=== PATIENT | male | born 1975 ===

== ENCOUNTER 2017-10-10 18:45 | Emergency (ER) | payer SELFPAY ==
[2017-10-10 18:57] VITALS: RESP 18
[2017-10-10] MEDS ORDERED: Amoxicillin-Clav 875-125 mg Tab PO STA (19:18)
[2017-10-10] MEDS ORDERED: Oxycodone/Acetaminophen 5/325 mg Tab PO STA (19:18)
--- NOTE | 2017-10-10 19:22 | ED PDOC ---
Arrival/HPI - General Chief Complaint: Dental Pain Time Seen by Provider: 10/10/17 19:18 Historian: Patient - History of Present Illness Narrative History of Present Illness (Text): 10/10/17 19:19 42 y/o male, pmh including dm, nkda, c/o rt. upper molar and facial pain x 3 days with no fall or trauma. Aching pain, aggravated by biting, associated with facial pain, no change in vision, no painful movement of the eye, no facial or eyelid swelling, no fever or chills, no chin swelling, no difficulty swallowing, no other medical or psychological complaints. Past Medical History - Provider Review Nursing Documentation Reviewed: Yes - Infectious Disease Hx of Infectious Diseases: None - Cardiac Hx Cardiac Disorders: No - Pulmonary Hx Asthma: No - Endocrine/Metabolic Hx Diabetes Mellitus Type 2: Yes - Psychiatric Hx Substance Use: No - Anesthesia Hx Anesthesia: No Family/Social History - Physician Review Nursing Documentation Reviewed: Yes Family/Social History: Unknown Family HX Smoking Status: Current Some Days Smoker Hx Alcohol Use: Yes Frequency of alcohol use: Socially Hx Substance Use: No Substance used: WEED Allergies/Home Meds Allergies/Adverse Reactions: Allergies No Known Allergies Allergy (Verified 10/10/17 18:57) Review of Systems - Review of Systems Constitutional: absent: Fatigue, Fevers Eyes: absent: Vision Changes ENT: Other (+dental pain). absent: Hearing Changes Respiratory: absent: SOB, Cough Cardiovascular: absent: Chest Pain Gastrointestinal: absent: Abdominal Pain, Nausea, Vomiting Musculoskeletal: absent: Arthralgias, Back Pain Skin: absent: Rash, Pruritis, Skin Lesions Neurological: absent: Headache Psychiatric: absent: Anxiety, Depression, Suicidal Ideation Physical Exam Vital Signs Reviewed: Yes Vital Signs Temp Pulse Resp BP Pulse Ox 10/10/17 19:41 99.0 F 10/10/17 18:51 99.4 F 98 H 18 147/82 97 Temperature: Afebrile Blood Pressure: Normal Pulse: Regular Respiratory Rate: Normal Appearance: Positive for: Well-Appearing, Non-Toxic, Comfortable Pain Distress: Severe Mental Status: Positive for: Alert and Oriented X 3 Finger Stick Blood Glucose: 270 - Systems Exam Head: Present: Atraumatic, Normocephalic Pupils: Present: PERRL, Non-Reactive Extroacular Muscles: Present: EOMI, Other (no painful movement of the eyes). No : Entrapment Conjunctiva: Present: Normal Ears: Present: NORMAL TM, Normal Canal. No: Erythema Mouth: Present: Moist Mucous Membranes, Other (Rt. upper molar noted to have dental caries and cracked molar noted, no gingival abscess or gingivitis, no facial swelling, no periorbital swelling. ) Nose (Internal): Present: Normal Inspection, No Active Bleeding. No: Rhinorrhea , Epistaxis Neck: Present: Normal Range of Motion, Trachea Midline. No: MIDLINE TENDERNESS , Lymphadenopathy Respiratory/Chest: Present: Clear to Auscultation, Good Air Exchange. No: Respiratory Distress, Accessory Muscle Use, Wheezes, Decreased Breath Sounds, Rales, Retracting, Rhonchi Cardiovascular: Present: Regular Rate and Rhythm, Normal S1, S2. No: Murmurs Abdomen: No: Tenderness, Distention, Peritoneal Signs Back: Present: Normal Inspection Upper Extremity: Present: Normal Inspection. No: Cyanosis, Edema Lower Extremity: Present: Normal Inspection. No: Edema Neurological: Present: GCS=15, CN II-XII Intact, Speech Normal, Motor Func Grossly Intact, Gait Normal, Memory Normal Skin: Present: Warm, Dry, Normal Color. No: Rashes Psychiatric: Present: Alert, Oriented x 3, Normal Insight, Normal Concentration Medical Decision Making ED Course and Treatment: 10/10/17 19:23 -Augmentin/toradol and percocet -I checked the [facility] report, no available search for this name and date of , will give percocet for break through pain -observe and reassess 10/10/17 19:56 -Patient feels much better, wants to be discharged home, will discharge home. -Due to the location of the pain on the rt. facial region on the rt. maxillary which he is sensitive on the rt. maxillary region, will start augmentin for sinusitis coverage. -Discharge home with Augmentin, motrin, percocet for break through pain, salt water gargling, follow up with your own pmd and dentist within 2 days, return to the ER for any new or worsening signs or symptoms. - Lab Interpretations Lab Results: Lab Results 10/10/17 19:00: POC Glucose (mg/dL) 270 H - Medication Orders Current Medication Orders: Discontinued Medications Amoxicillin/Clavulanate Potassium (Augmentin 875 Mg-125 Mg Tab) 1 tab PO STAT STA PRN Reason: Protocol Stop: 10/10/17 19:19 Last Admin: 10/10/17 19:32 Dose: 1 tab Ketorolac Tromethamine (Toradol) 60 mg IM STAT STA Stop: 10/10/17 19:19 Last Admin: 10/10/17 19:32 Dose: 60 mg MAR Pain Assessment Document 10/10/17 19:32 AD (Rec: 10/10/17 19:32 [email or web address] Pain Reassessment Is this a pain reassessment? No Presence of Pain Presence of Pain Yes Description Intensity of Pain at present 8 Pain Behavior Facial Grimacing IM Administration Charges Document 10/10/17 19:32 AD (Rec: 10/10/17 19:32 AD [facility] [email or web address] Injection Site MAR Injection Site Right Gluteus Josep Charges for Administration # of IM Administrations 1 Oxycodone/Acetaminophen (Percocet 5/325 Mg Tab) 1 tab PO STAT STA Stop: 10/10/17 19:19 Last Admin: 10/10/17 19:32 Dose: 1 tab MAR Pain Assessment Document 10/10/17 19:32 AD (Rec: 10/10/17 19:33 AD [facility] [email or web address] Pain Reassessment Is this a pain reassessment? No Presence of Pain Presence of Pain Yes - PA / TECHNICIAN [employer] / Resident Statement MD/DO has reviewed & agrees with the documentation as recorded. Disposition/Present on Arrival - Present on Arrival Any Indicators Present on Arrival: No History of DVT/PE: No History of Uncontrolled Diabetes: No Urinary Catheter: No History of Decub. Ulcer: No History Surgical Site Infection Following: None - Disposition Have Diagnosis and Disposition been Completed?: Yes Diagnosis: Dental caries, Pain, dental Disposition: HOME/ ROUTINE Disposition Time: 19:27 Patient Plan: Discharge Patient Problems: Current Active Problems Problem Status Onset Dental caries Acute Pain, dental Acute Condition: IMPROVED Additional Instructions: -Discharge home with Augmentin, motrin, percocet for break through pain, salt water gargling, follow up with your own pmd and dentist within 2 days, return to the ER for any new or worsening signs or symptoms. Prescriptions: Amoxicillin/Clavulanate [Augmentin 875 MG-125 MG] 1 tab PO BID #20 tab Ibuprofen [Motrin Tab] 600 mg PO QID PRN #30 tab PRN Reason: Other oxyCODONE/Acetaminophen [Percocet 5/325 mg Tab] 1 tab PO QID PRN #12 tab PRN Reason: Other Referrals: [facility] [place] [Outside] - Follow up with primary Forms: WORK NOTE
[2017-10-10 19:41] VITALS: TEMP 99
[2017-10-10 20:17] VITALS: BP 137/79; PULSE 90; O2SAT 100
== END 2017-10-10 19:56 | disposition home or self-care (01) ==
LOC: ED 18:45
DX: K02.9 Dental caries, unspecified (principal); K08.89 Other specified disorders of teeth and supporting structures; E11.9 Type 2 diabetes mellitus without complications; F17.210 Nicotine dependence, cigarettes, uncomplicated
CPT/HCPCS: 82948; 96372; 99282; J1885